=== PATIENT | female | born 1945 | race Caucasian/White ===

== ENCOUNTER 2016-03-21 18:12 | Emergency (ER) | payer MEDICARE, BC ==
[~2016-03-21] VITALS: Ht 152.4 cm; Wt 45.5 kg
[~2016-03-21 18:12] MED LIST: ALBUTEROL1.25 MG/3 IH; ALEVE 220MG220 MG PO; ARIMIDEX1 MG PO; ASPIRIN 81M81 MG/TA2 PO; CALCIUM 600600 M2 PO; CIPRO 250MG TA250 MG PO; FERRO-TIME325 MG PO; FISH OIL1000 MG PO; IPRATROPIUM BROM3 M1 IH; LEVAQUIN 750MG750 M1 PO; LUTEIN20 MG PO; MULTIPLE VITAMI1 CAP PO; PLAVIX 75MG TAB75 MG PO; PREDNISONE20 MG PO; SYNTHROID 0.0.025 MG PO; ZOCOR 40MG40 MG PO; ZOLOFT 50MG50 MG PO
[2016-03-21 18:15] VITALS: TEMP 98.4
[2016-03-21] MEDS ORDERED: NORCO 325 MG-51 TAB PO (18:38)
[2016-03-21 20:20] VITALS: BP 116/66; PULSE 78
== END 2016-03-21 20:32 | disposition home or self-care (01) ==
LOC: COL.ER 18:12
DX: K56.41 Fecal impaction (principal); Z98.890 Other specified postprocedural states

== ENCOUNTER 2018-01-30 10:12 | Emergency (ER) | payer MEDICARE, BC ==
[~2018-01-30] VITALS: Ht 152.4 cm; Wt 45.0 kg
[~2018-01-30 10:12] MED LIST changes: +NORCO 325 MG-51 TAB PO
[2018-01-30 10:23] VITALS: TEMP 97.3
[2018-01-30 10:53] LABS: BASO % 0.3 % (0.0-2.0); EOS # 0.6 (0.0-0.7); GRAN # 6.4 (1.4-6.5); GRAN % 69.2 % (42.2-75.2); HEMATOCRIT 48.3 % (37.0-47.0); HEMOGLOBIN 15.5 g/dl (12.5-16.0); LYMPH # 1.5 (1.2-3.4); LYMPH % 15.7 % (20.0-51.0); MEAN CELL VOLUME 87 fl (80.0-100.0); MEAN CORPUSCULAR HEMOGLOBIN 28 pg (27.0-31.0); MEAN CORPUSCULAR HGB CONC 32 g/dl (33.0-37.0); MEAN PLATELET VOLUME 10.6 fl (7.4-10.4); MONO # 0.8 (0.1-0.6); MONO % 8.5 % (1.7-9.3); PLATELET COUNT 216 K/mm3 (130-400); RED BLOOD COUNT 5.53 M/mm3 (4.10-5.30); REDCELL DISTRIBUTION WIDTH-CV 12.9 % (11.5-14.5)
[2018-01-30 11:05] LABS: ALANINE AMINOTRANSFERASE 23 U/L (9-52); ALBUMIN 3.7 gm/dL (3.5-5.0); ALKALINE PHOSPHATASE 66 U/L (50-136); ANION GAP 8 mmol/L (7-16); AST,SGOT 17 U/L (15-37); BILIRUBIN,TOTAL 0.4 mg/dL (0.0-1.0); BLOOD UREA NITROGEN 25 mg/dL (7-17); CALCIUM 9.3 mg/dL (8.4-10.2); CARBON DIOXIDE 23 mmol/L (22-30); CHLORIDE 107 mmol/L (98-107); CREATININE, serum 0.83 mg/dL (0.52-1.25); GLUCOSE 137 mg/dL (74-106); LIPASE 60 U/L (23-300); POTASSIUM 3.8 mmol/L (3.4-5.0); SODIUM 138 mmol/L (137-145); TOTAL PROTEIN 6.2 gm/dL (6.4-8.2)
[2018-01-30 11:23] LABS: TROPONIN-I < 0.012 ng/mL (0.000-0.034)
[2018-01-30 14:20] LABS: COLLECTION METHOD CLEAN CATCH
[2018-01-30 14:30] LABS: MUCOUS Present /lpf; PH 5 (5-8); URINE APPEARANCE Cloudy; URINE BACTERIA None Seen /hpf; URINE BILIRUBIN Negative (NEGATIVE); URINE BLOOD Negative (NEGATIVE); URINE CALCIUM OXALATE CRYSTAL Present /hpf; URINE COLOR Yellow; URINE GLUCOSE Negative (NEGATIVE); URINE KETONE Negative (NEGATIVE); URINE LEUKOCYTE ESTERASE 2+ (NEGATIVE); URINE NITRATE Negative (NEGATIVE); URINE PROTEIN(semi-quant) 1+ (NEGATIVE); URINE UROBILINOGEN Negative (NEGATIVE)
[2018-01-30] MEDS ORDERED: ZOFRAN ODT4 MG PO (15:36)
[2018-01-30 15:43] VITALS: BP 127/67; PULSE 86
[2018-01-31] MEDS ORDERED: MACROBID 1100 MG/CAP PO (15:54)
== END 2018-01-30 15:48 | disposition home or self-care (01) ==
LOC: COL.ER 10:12
PROVIDERS: Emergency Medicine
DX: R19.7 Diarrhea, unspecified (principal); R00.2 Palpitations; R53.81 Other malaise; Z79.02 Long term (current) use of antithrombotics/antiplatelets; Z79.82 Long term (current) use of aspirin
CPT/HCPCS: J7030; Q9967

== ENCOUNTER 2018-02-05 07:44 | Emergency (ER) | payer MEDICARE, BC ==
[~2018-02-05] VITALS: Ht 152.4 cm; Wt 44.1 kg
[~2018-02-05 07:44] MED LIST changes: +MACROBID 1100 MG/CAP PO; +ZOFRAN ODT4 MG PO
[2018-02-05 07:49] VITALS: TEMP 97.4
[2018-02-05 08:27] LABS: BASO # 0.1 (0.0-0.2); BASO % 0.4 % (0.0-2.0); EOS # 1.2 (0.0-0.7); EOS % 8.1 % (0-4.0); GRAN # 10.2 (1.4-6.5); GRAN % 67.6 % (42.2-75.2); HEMATOCRIT 46.8 % (37.0-47.0); HEMOGLOBIN 14.9 g/dl (12.5-16.0); LYMPH # 1.8 (1.2-3.4); LYMPH % 11.8 % (20.0-51.0); MEAN CELL VOLUME 88 fl (80.0-100.0); MEAN CORPUSCULAR HEMOGLOBIN 28 pg (27.0-31.0); MEAN CORPUSCULAR HGB CONC 32 g/dl (33.0-37.0); MEAN PLATELET VOLUME 10.3 fl (7.4-10.4); MONO # 1.6 (0.1-0.6); MONO % 10.7 % (1.7-9.3); PLATELET COUNT 260 K/mm3 (130-400); RED BLOOD COUNT 5.33 M/mm3 (4.10-5.30); REDCELL DISTRIBUTION WIDTH-CV 12.9 % (11.5-14.5)
[2018-02-05 08:36] LABS: COLLECTION METHOD CATHETER
[2018-02-05 08:42] LABS: ALANINE AMINOTRANSFERASE 33 U/L (9-52); ALBUMIN 3.6 gm/dL (3.5-5.0); ALKALINE PHOSPHATASE 97 U/L (50-136); ANION GAP 3 mmol/L (7-16); AST,SGOT 23 U/L (15-37); BILIRUBIN,TOTAL 0.2 mg/dL (0.0-1.0); BLOOD UREA NITROGEN 16 mg/dL (7-17); CALCIUM 9.2 mg/dL (8.4-10.2); CARBON DIOXIDE 29 mmol/L (22-30); CHLORIDE 108 mmol/L (98-107); CREATININE, serum 0.88 mg/dL (0.52-1.25); GLUCOSE 140 mg/dL (74-106); LIPASE 309 U/L (23-300); POTASSIUM 3.7 mmol/L (3.4-5.0); SODIUM 140 mmol/L (137-145); TOTAL PROTEIN 6.1 gm/dL (6.4-8.2)
[2018-02-05 08:51] LABS: TROPONIN-I < 0.012 ng/mL (0.000-0.034)
[2018-02-05 08:56] LABS: MUCOUS Present /lpf; PH 5 (5-8); SQUAMOUS EPITHELIAL 0-2 /hpf; URINE APPEARANCE Hazy; URINE BACTERIA None Seen /hpf; URINE BILIRUBIN Negative (NEGATIVE); URINE BLOOD Negative (NEGATIVE); URINE COLOR Yellow; URINE GLUCOSE Negative (NEGATIVE); URINE KETONE Negative (NEGATIVE); URINE LEUKOCYTE ESTERASE Negative (NEGATIVE); URINE NITRATE Negative (NEGATIVE); URINE PROTEIN(semi-quant) 2+ (NEGATIVE); URINE UROBILINOGEN Negative (NEGATIVE)
[2018-02-05] MEDS ORDERED: ZOFRAN ODT4 MG PO (10:42)
[2018-02-05 12:28] VITALS: BP 108/67; PULSE 86
== END 2018-02-05 12:28 | disposition home or self-care (01) ==
LOC: COL.ER 07:44
PROVIDERS: Emergency Medicine
DX: R19.7 Diarrhea, unspecified (principal); Z86.73 Personal history of transient ischemic attack (TIA), and cerebral infarction without residual deficits; Z85.3 Personal history of malignant neoplasm of breast; Z90.710 Acquired absence of both cervix and uterus; Z79.02 Long term (current) use of antithrombotics/antiplatelets
CPT/HCPCS: J7030; Q9967

== ENCOUNTER 2019-08-13 17:26 | Emergency (ER) | payer MEDICARE, BC ==
[~2019-08-13] VITALS: Ht 149.9 cm; Wt 46.8 kg
[2019-08-13 17:36] VITALS: TEMP 97.9
[2019-08-13 18:29] LABS: BASO # 0.1 (0.0-0.2); BASO % 1.1 % (0.0-2.0); EOS # 0.2 (0.0-0.7); EOS % 2.2 % (0-4.0); GRAN # 3.8 (1.4-6.5); GRAN % 53.3 % (42.2-75.2); HEMATOCRIT 38.5 % (37.0-47.0); HEMOGLOBIN 12.4 g/dl (12.5-16.0); LYMPH # 2.5 (1.2-3.4); LYMPH % 34.2 % (20.0-51.0); MEAN CELL VOLUME 87 fl (80.0-100.0); MEAN CORPUSCULAR HEMOGLOBIN 28 pg (27.0-31.0); MEAN CORPUSCULAR HGB CONC 32 g/dl (33.0-37.0); MEAN PLATELET VOLUME 10.4 fl (7.4-10.4); MONO # 0.6 (0.1-0.6); MONO % 8.9 % (1.7-9.3); PLATELET COUNT 171 K/mm3 (130-400); RED BLOOD COUNT 4.41 M/mm3 (4.10-5.30)
[2019-08-13 18:35] LABS: INR 0.9 (0.8-3.0); PROTHROMBIN TIME 10.4 SECONDS (9.7-12.8)
[2019-08-13 18:38] LABS: PARTIAL THROMBOPLASTIN TIME 28.6 SECONDS (26.0-37.0)
[2019-08-13 18:39] LABS: ALBUMIN 4.2 gm/dL (3.5-5.0); BILIRUBIN,TOTAL 0.3 mg/dL (0.0-1.0); CALCIUM 9.8 mg/dL (8.4-10.2); CREATININE, serum 0.76 (0.52-1.25); POTASSIUM 3.7 mmol/L (3.4-5.0); TOTAL PROTEIN 6.8 gm/dL (6.4-8.2)
[2019-08-13 19:10] VITALS: BP 100/65; PULSE 76
== END 2019-08-13 19:11 | disposition home or self-care (01) ==
LOC: COL.ER 17:26
PROVIDERS: Emergency Medicine
DX: M79.81 Nontraumatic hematoma of soft tissue (principal); Z86.73 Personal history of transient ischemic attack (TIA), and cerebral infarction without residual deficits

== ENCOUNTER 2020-01-30 23:00 | Emergency (ER) | payer MEDICARE, BC ==
[~2020-01-30] VITALS: Ht 152.4 cm; Wt 45.5 kg
[2020-01-30 23:30] LABS: BASO # 0.1 (0.0-0.2); BASO % 0.5 % (0.0-2.0); EOS # 0.1 (0.0-0.7); EOS % 0.5 % (0-4.0); GRAN # 12.7 (1.4-6.5); GRAN % 85.2 % (42.2-75.2); HEMATOCRIT 40.8 % (37.0-47.0); HEMOGLOBIN 13.1 g/dl (12.5-16.0); LYMPH # 1.5 (1.2-3.4); LYMPH % 9.9 % (20.0-51.0); MEAN CELL VOLUME 87 fl (80.0-100.0); MEAN CORPUSCULAR HEMOGLOBIN 28 pg (27.0-31.0); MEAN CORPUSCULAR HGB CONC 32 g/dl (33.0-37.0); MEAN PLATELET VOLUME 10.1 fl (7.4-10.4); MONO # 0.5 (0.1-0.6); MONO % 3.6 % (1.7-9.3); PLATELET COUNT 176 K/mm3 (130-400); RED BLOOD COUNT 4.69 M/mm3 (4.10-5.30); REDCELL DISTRIBUTION WIDTH-CV 12.5 % (11.5-14.5)
[2020-01-30 23:46] LABS: ALBUMIN 4.5 gm/dL (3.5-5.0); BILIRUBIN,TOTAL 0.5 mg/dL (0.0-1.0); CALCIUM 9.8 mg/dL (8.4-10.2); CREATININE, serum 0.84 (0.52-1.25); POTASSIUM 3.8 mmol/L (3.4-5.0); TOTAL PROTEIN 7.2 gm/dL (6.4-8.2)
[2020-01-31] MEDS ORDERED: BENTYL 20MG20 MG/TAB PO (01:45)
[2020-01-31] MEDS ORDERED: ZOFRAN ODT4 MG PO (01:45)
[2020-01-31 01:47] LABS: COLLECTION METHOD CATHETER
[2020-01-31 01:59] LABS: MUCOUS Present /lpf; PH 6 (5-8); URINE APPEARANCE Clear; URINE BACTERIA None Seen /hpf; URINE BILIRUBIN Negative (NEGATIVE); URINE BLOOD 1+ (NEGATIVE); URINE COLOR Yellow; URINE GLUCOSE Negative (NEGATIVE); URINE KETONE Trace (NEGATIVE); URINE LEUKOCYTE ESTERASE 2+ (NEGATIVE); URINE NITRATE Negative (NEGATIVE); URINE PROTEIN(semi-quant) Negative (NEGATIVE); URINE UROBILINOGEN Negative (NEGATIVE); URINE WBC 0-2 /hpf
[2020-01-31 02:05] VITALS: BP 124/71; PULSE 63; TEMP 98.4
== END 2020-01-31 02:09 | disposition home or self-care (01) ==
LOC: COL.ER 23:00
PROVIDERS: Emergency Medicine
DX: R10.30 Lower abdominal pain, unspecified (principal); I10 Essential (primary) hypertension; E03.9 Hypothyroidism, unspecified; C50.919 Malignant neoplasm of unspecified site of unspecified female breast; Z90.710 Acquired absence of both cervix and uterus; Z79.02 Long term (current) use of antithrombotics/antiplatelets; Z79.890 Hormone replacement therapy; Z79.82 Long term (current) use of aspirin
CPT/HCPCS: J0500; J1885; Q9967

== ENCOUNTER 2021-07-13 13:23 | Emergency (ER) | payer MEDICARE, BC ==
[~2021-07-13] VITALS: Ht 152.4 cm; Wt 46.8 kg
[~2021-07-13 13:23] MED LIST changes: +BENTYL 20MG20 MG/TAB PO
[2021-07-13 13:30] VITALS: TEMP 98
[2021-07-13 14:05] LABS: BASO # 0.1 K/mm3 (0.0-0.2); BASO % 0.7 % (0.0-2.0); EOS # 0.3 K/mm3 (0.0-0.7); EOS % 1.8 % (0.0-4.0); GRAN # 10.7 K/mm3 (1.4-6.5); GRAN % 74.4 % (42.2-75.2); HEMATOCRIT 40.4 % (37.0-47.0); LYMPH # 2.3 K/mm3 (1.2-3.4); MEAN CELL VOLUME 87 fl (80.0-100.0); MEAN CORPUSCULAR HEMOGLOBIN 28 pg (27-31); MEAN CORPUSCULAR HGB CONC 32 g/dl (33.0-37.0); MEAN PLATELET VOLUME 11.2 fl (7.4-10.4); MONO % 6.7 % (1.7-9.3); PLATELET COUNT 176 K/mm3 (130-400); RED BLOOD COUNT 4.66 M/mm3 (4.10-5.30); REDCELL DISTRIBUTION WIDTH-CV 12.1 % (11.5-14.5)
[2021-07-13 14:20] LABS: ALANINE AMINOTRANSFERASE 13 U/L (0-55); ALBUMIN 4.1 gm/dL (3.4-4.8); ALKALINE PHOSPHATASE 68 U/L (40-150); ANION GAP 10 mmol/L (7-16); AST,SGOT 14 U/L (5-34); BILIRUBIN,TOTAL 0.6 mg/dL (0.2-1.2); BLOOD UREA NITROGEN 12 mg/dL (10-20); CALCIUM 10.2 mg/dL (8.4-10.2); CARBON DIOXIDE 26 mmol/L (23-31); CHLORIDE 103 mmol/L (98-107); CREATININE, serum 0.89 mg/dL (0.57-1.11); GLUCOSE 83 mg/dL (70-99); LIPASE 36 U/L (8-78); POTASSIUM 3.8 mmol/L (3.5-4.5); SODIUM 139 mmol/L (136-145); TOTAL PROTEIN 7.2 gm/dL (6.2-8.1)
[2021-07-13 14:28] LABS: TROPONIN-I < 0.010 ng/mL (0.00-0.033)
[2021-07-13 15:30] VITALS: BP 116/61; PULSE 67
[2021-07-13] MEDS ORDERED: PROTONIX 40MG T40 MG PO (15:47)
== END 2021-07-13 15:48 | disposition home or self-care (01) ==
LOC: COL.ER 13:23
PROVIDERS: Nurse Practitioner Primary Care
DX: R07.89 Other chest pain (principal); D72.829 Elevated white blood cell count, unspecified

== ENCOUNTER 2022-08-13 14:17 | Emergency (ER) | payer MEDICARE, BC ==
[~2022-08-13] VITALS: Ht 149.9 cm; Wt 45.5 kg
[~2022-08-13 14:17] MED LIST changes: +AMOXICILLIN 8751 TAB PO; +PROTONIX 40MG T40 MG PO
[2022-08-13 14:25] VITALS: TEMP 98.7
[2022-08-13] MEDS ORDERED: LR 1,000 ML IV ONE (15:15)
[2022-08-13 15:40] LABS: BASO # 0.1 K/mm3 (0.0-0.2); BASO % 0.8 % (0.0-2.0); EOS % 0.3 % (0.0-4.0); GRAN # 7.2 K/mm3 (1.4-6.5); GRAN % 78.3 % (42.2-75.2); HEMATOCRIT 39.5 % (37.0-47.0); HEMOGLOBIN 12.6 g/dl (12.5-16.0); LYMPH # 0.8 K/mm3 (1.2-3.4); MEAN CELL VOLUME 86 fl (80.0-100.0); MEAN CORPUSCULAR HEMOGLOBIN 28 pg (27-31); MEAN CORPUSCULAR HGB CONC 32 g/dl (33.0-37.0); MEAN PLATELET VOLUME 11.3 fl (7.4-10.4); MONO # 1.1 K/mm3 (0.1-0.6); MONO % 11.4 % (1.7-9.3); PLATELET COUNT 211 K/mm3 (130-400); RED BLOOD COUNT 4.59 M/mm3 (4.10-5.30)
[2022-08-13 15:55] LABS: ALBUMIN 3.3 gm/dL (3.4-4.8); BILIRUBIN,TOTAL 0.7 mg/dL (0.2-1.2); CALCIUM 9.3 mg/dL (8.4-10.2); CREATININE, serum 0.8 mg/dL (0.57-1.11); MAGNESIUM 1.8 mg/dL (1.6-2.6); PHOSPHOROUS 3.2 mg/dL (2.3-4.7); POTASSIUM 3.4 mmol/L (3.5-4.5); TOTAL PROTEIN 6.4 gm/dL (6.2-8.1)
[2022-08-13 15:58] LABS: COLLECTION METHOD CLEAN CATCH
[2022-08-13 16:01] LABS: TROPONIN-I 0.01 ng/mL (0.00-0.033)
[2022-08-13 16:11] LABS: PH 5.5 (5.0-8.5); URINE APPEARANCE Clear (CLEAR/HAZY); URINE BLOOD 2+ (NEGATIVE); URINE COLOR Yellow (YELLOW); URINE GLUCOSE Negative (NEGATIVE); URINE KETONE TRACE (NEGATIVE); URINE NITRATE Negative (NEGATIVE); URINE PROTEIN(semi-quant) 1+ (NEGATIVE); URINE UROBILINOGEN 0.2 E.U/dL (0.2-1.0)
[2022-08-13 16:12] LABS: MUCOUS Present (NOT PRESENT); URINE BACTERIA Rare /hpf (NONE SEEN)
[2022-08-13] MEDS ORDERED: Iohexol 300 - 100 ML VIAL IV ONE (16:18)
[2022-08-13] MEDS ORDERED: NS 60 ML IV ONE (16:19)
[2022-08-13] MEDS ORDERED: FLAGYL500 MG PO (19:05)
[2022-08-13] MEDS ORDERED: CIPRO 500MG TA500 MG PO (19:05)
[2022-08-13 19:09] LABS: CLOSTRIDIUM DIFF A/B POS
[2022-08-13 19:28] VITALS: BP 116/66; PULSE 94
[2022-08-13] MEDS ORDERED: VANCOCIN H125 MG/CAP PO (21:42)
== END 2022-08-13 19:29 | disposition home or self-care (01) ==
LOC: COL.ER 14:17
PROVIDERS: Emergency Medicine
DX: A04.72 Enterocolitis due to Clostridium difficile, not specified as recurrent (principal); K51.00 Ulcerative (chronic) pancolitis without complications; Z98.890 Other specified postprocedural states
CPT/HCPCS: J7120; Q9967

== ENCOUNTER 2023-10-25 16:25 | Inpatient (IN) | payer MEDICARE, BC ==
[~2023-10-25] VITALS: Ht 152.4 cm; Wt 47.6 kg
[~2023-10-25 16:25] MED LIST changes: +CIPRO 500MG TA500 MG PO; +FLAGYL500 MG PO; +VANCOCIN H125 MG/CAP PO; +ZOLOFT 100MG100 MG PO; -ZOLOFT 50MG50 MG PO
[2023-10-25] MEDS ORDERED: fentaNYL 50 MCG/ML 2 ML VIAL IV ONE ×2 (17:15→19:15)
[2023-10-25] MEDS ORDERED: NS 500 ML IV ONE (17:15)
[2023-10-25 17:16] LABS: BASO % 0.3 % (0.0-2.0); EOS # 0.1 K/mm3 (0.0-0.7); EOS % 0.9 % (0.0-4.0); GRAN # 11.2 K/mm3 (1.4-6.5); GRAN % 76.4 % (42.2-75.2); HEMATOCRIT 40.9 % (37.0-47.0); HEMOGLOBIN 13.3 g/dl (12.5-16.0); LYMPH # 2.2 K/mm3 (1.2-3.4); LYMPH % 15.1 % (20.0-51.0); MEAN CELL VOLUME 87 fl (80.0-100.0); MEAN CORPUSCULAR HEMOGLOBIN 28 pg (27-31); MEAN CORPUSCULAR HGB CONC 33 g/dl (33.0-37.0); MEAN PLATELET VOLUME 10.8 fl (7.4-10.4); MONO % 6.9 % (1.7-9.3); PLATELET COUNT 172 K/mm3 (130-400); RED BLOOD COUNT 4.71 M/mm3 (4.10-5.30); REDCELL DISTRIBUTION WIDTH-CV 12.8 % (11.5-14.5)
[2023-10-25 17:33] LABS: ALBUMIN 4.1 g/dL (3.4-4.8); BILIRUBIN,TOTAL 0.8 mg/dL (0.2-1.2); C-REACTIVE PROTEIN 8.26 mg/dL (0.00-0.50); CALCIUM 10.9 mg/dL (8.4-10.2); CREATININE, serum 1.05 mg/dL (0.57-1.11); MAGNESIUM 2.1 mg/dL (1.6-2.6); POTASSIUM 3.8 mEq/L (3.5-4.5); TOTAL PROTEIN 7.1 g/dl (6.2-8.1)
[2023-10-25 18:29] LABS: COLLECTION METHOD CLEAN CATCH
[2023-10-25] MEDS ORDERED: Iohexol 300 - 100 ML VIAL IV ONE (18:33)
[2023-10-25] MEDS ORDERED: NS 100 ML IV ONE (18:33)
[2023-10-25 18:52] LABS: PH 7.5 (5.0-8.5); URINE APPEARANCE TURBID (CLEAR/HAZY); URINE BLOOD NEGATIVE (NEGATIVE); URINE COLOR YELLOW (YELLOW); URINE GLUCOSE NEGATIVE (NEGATIVE); URINE KETONE NEGATIVE (NEGATIVE); URINE NITRATE NEGATIVE (NEGATIVE); URINE PROTEIN(semi-quant) TRACE (NEGATIVE); URINE UROBILINOGEN 0.2 E.U/dL (0.2-1.0)
[2023-10-25] MEDS ORDERED: ZOCOR 40MG40 MG PO (19:28)
[2023-10-25] MEDS ORDERED: metroNIDAZOLE 100 ML IV ONE (19:45)
[2023-10-25] MEDS ORDERED: Ondansetron 4 MG/2 ML VIAL ONE (20:04)
[2023-10-25] MEDS ORDERED: Lidocaine PF 2% (20 MG/ML) 5 ML VIAL ONE (20:04)
[2023-10-25] MEDS ORDERED: NS 10 ML IV ONE (20:04)
[2023-10-25] MEDS ORDERED: Rocuronium 50 MG/5 ML Multi-Dose VIAL ONE (20:04)
[2023-10-25] MEDS ORDERED: dexAMETHasone 10 MG/ML VIAL ONE (20:04)
[2023-10-25] MEDS ORDERED: fentaNYL 50 MCG/ML 2 ML VIAL ONE ×2 (20:04→21:22)
[2023-10-25] MEDS ORDERED: Succinylcholine PF 200 MG/10 ML SYRINGE IV ONE (20:05)
[2023-10-25] MEDS ORDERED: Pantoprazole 40 MG in NS 10 ML IV SCH (21:00)
[2023-10-25] MEDS ORDERED: Morphine 4 MG/ML VIAL IV PRN (21:15)
[2023-10-25] MEDS ORDERED: droPERidol 2.5 MG/ML 2 ML VIAL IV PRN (21:30)
[2023-10-25] MEDS ORDERED: HYDROmorphone 1 MG/1 ML SYRINGE [PACU/SDC ONLY] IV PRN (21:30)
[2023-10-25] MEDS ORDERED: fentaNYL 50 MCG/ML 1 ML SYRINGE/VIAL [PACU/SDC ONLY] IV PRN (21:30)
[2023-10-25] MEDS ORDERED: hydrALAZINE 20 MG/ML 1 ML VIAL IV PRN (21:30)
[2023-10-25] MEDS ORDERED: Morphine 2 MG/1 ML VIAL [PACU/SDC ONLY] IV PRN (21:30)
[2023-10-25] MEDS ORDERED: Ondansetron 4 MG/2 ML VIAL IV PRN ×2 (21:30→22:30)
[2023-10-25] MEDS ORDERED: LR 1,000 ML IV SCH (22:30)
[2023-10-26] VITALS (288 sets, daily range): BP systolic 92–139; BP diastolic 50–72; PULSE 65–90; TEMP 98.2–99.4; O2SAT 88–100
[2023-10-26 04:55] LABS: MEAN CELL VOLUME 86 fl (80.0-100.0); MEAN CORPUSCULAR HGB CONC 33 g/dl (33.0-37.0); MEAN PLATELET VOLUME 11.3 fl (7.4-10.4); PLATELET COUNT 129 K/mm3 (130-400); RED BLOOD COUNT 3.56 M/mm3 (4.10-5.30); REDCELL DISTRIBUTION WIDTH-CV 12.7 % (11.5-14.5)
[2023-10-26 04:57] LABS: HEMATOCRIT 30.6 % (37.0-47.0); HEMOGLOBIN 10.1 g/dl (12.5-16.0); MEAN CORPUSCULAR HEMOGLOBIN 28 pg (27-31)
[2023-10-26 05:13] LABS: ALBUMIN 2.9 g/dL (3.4-4.8); CALCIUM 9.1 mg/dL (8.4-10.2); CREATININE, serum 1.13 mg/dL (0.57-1.11); POTASSIUM 4.2 mEq/L (3.5-4.5); TOTAL PROTEIN 5.4 g/dl (6.2-8.1)
[2023-10-26] MEDS ORDERED: metroNIDAZOLE 100 ML IV SCH (06:00)
--- NOTE | 2023-10-26 08:31 | NUR ---
Patient resting in bed, alert and oriented. Minimal pain in abdomen. Incision had drainage on abdominal pad, sanginous, removed soiled and redressed with abdominal pad. Some tenderness and pain noted on bilateral sides of incision. Currently on room air with stable vital signs. IV infusing appropriately and rodriguez draining yellow clear urine. Light bowel sounds, patient states she has not passed gas yet. No NG in nare.
--- NOTE | 2023-10-26 09:04 | NUR ---
personal support worker met with pt to discuss discharge planning. She reports to live with her , Loi [phone] in [place]. She sees Dr. Frederick for PCP needs and obtains medications from [facility] with no difficulties. She confirmed her insurance as Medicare A and B and [employer]BS. She reports to be independent with ADLS and uses no DME. She thinks her as DPOA-HC at home. Pt had no further needs. KRIS called KRIS Erazo with [facility] who does not have a DPOA-HC on file for pt. Discharge Plan: home likely
[2023-10-26] MEDS ORDERED: oxyCODONE 5 MG TAB PO PRN (09:45)
[2023-10-26] MEDS ORDERED: Sertraline 100 MG TAB PO SCH (10:44)
--- NOTE | 2023-10-26 18:20 | NUR ---
Patient up to surgical unit from ICU. Patient awake, alert and oriented. Recently received pain medication, pt states that she is unsure if medication is working yet. at the bedside. Bed in lowest position with call light within reach.
--- NOTE | 2023-10-26 18:49 | NUR ---
Gave report to Rossy BUTT on surgical. All personal belongings were transported with bedside. VSS at this time. Dime sized drainage on new dressing. She tolerated up and moving to and from wheelchair without complications.
[2023-10-26] MEDS ORDERED: Acetaminophen 325 MG TAB PO PRN (19:00)
--- NOTE | 2023-10-26 20:00 | NUR ---
PT A&O X3 LAYING IN BED. VSS. ABD MIDLINE DRESSING INTACT WITH SOME SHADOWING ON IT. PT REPORTING HAVING SOME ABD PAIN, GAVE PRN TYLENOL PER MAR. DENYING N/V. VICENTE TO DD WITH YELLOW OUTPUT. LR AT 100MLS/HR INFUSING TO RT AC. PT DENYING FURTHER NEEDS. CALL LIGHT IN REACH
[2023-10-26] MEDS ORDERED: Atorvastatin 20 MG TAB PO SCH (21:00)
--- NOTE | 2023-10-26 22:32 | NUR ---
PT HAVING SOME INCREASED CONFUSION THROUGHOUT THE NIGHT. PT REORIENTED TO SITUATION & FALL PRECAUTIONS IN PLACE
[2023-10-27] VITALS (13 sets, daily range): BP systolic 119–156; BP diastolic 58–74; PULSE 73–91; TEMP 98.3–99.1
--- NOTE | 2023-10-27 06:12 | NUR ---
PT IS ABLE TO ANSWER ORIENTATION QUESTIONS CORRECTLY BUT STILL CONFUSED & FORGETFUL IN CONVERSATION. STATES SHE IS HAVING SOME ABD PAIN, GAVE PRN TYLENOL PER MAR. MIDLINE DRESSING HAS REMAINED THE SAME, INTACT WITH MINIMAL SHADOWING. CALL LIGHT IN REACH & FALL PRECAUTIONS IN PLACE.
--- NOTE | 2023-10-27 09:00 | NUR ---
PATIENT RESTING IN BED EATING BREAKFAST. ALERT AND ORIENTED. SHIFT ASSESSMENT COMPLETE. INCISION TO MIDLINE ABDOMEN HAS A SMALL AMOUNT OF BLOOD NOTED. ALL CECILLE INTACT. STATES THERE IS A SMALL AMOUNT OF ABDOMINAL DISCOMFORT, BUT STATES SHE IS PASSING GAS. PATIENT ON 2L O2 VIA NC AT THIS TIME. DENIES FURTHER NEEDS OR CONCERNS AT THIS TIME. ALL NEEDS MET AT THIS VISIT. CALL LIGHT WITHIN REACH.
--- NOTE | 2023-10-27 12:23 | NUR ---
THIS RN DISCONTINUED VICENTE PER ORDERS. PATIENT IS NOW ABLE TO AMBULATE TO BATHROOM. PATIENT TOLERATED PROCEDURE WELL. MINNIE CARE PROVIDED. DENIES PAIN OR DISCOMFORT. 700 ML CLEAR, YELLOW URINE NOTED IN VICENTE BAG.
--- NOTE | 2023-10-27 15:58 | NUR ---
wharf worker reviewed the PT evaluation which stated patient may benefit from home health if she was interested. SW met with patient and her family member and provided the [email or web address] list of options for home health. Patient stated she was not certain that she would want home health. SW explained she would follow up tomorrow in case she was interested. SW explained if patient discharged and did not want home health and got home and decided she should get home health, she could set this up at her primary care physician. Patient understood. Discharge plan: Home
--- NOTE | 2023-10-27 20:35 | NUR ---
Patient assessed at this time, see shift assessment, reports minimal pain, denies the need for pain medicine at this time, dressing to abdomen about to come off, changed with non adherent pad and metapore, sutures intact, no drainage noted, still with IV infusing well to right AC, denies further needs, call light and personal items within reach, will continue to monitor.
[2023-10-28] VITALS (13 sets, daily range): BP systolic 116–163; BP diastolic 63–77; PULSE 72–97; TEMP 98.2–99.5
--- NOTE | 2023-10-28 00:30 | NUR ---
Patient confused at this time, thought it's noon, reorientated by this nurse, denies further needs, will continue to monitor.
[2023-10-28 05:49] LABS: BASO % 0.4 % (0.0-2.0); EOS # 0.2 K/mm3 (0.0-0.7); EOS % 1.9 % (0.0-4.0); GRAN # 7.7 K/mm3 (1.4-6.5); GRAN % 72.4 % (42.2-75.2); LYMPH # 1.9 K/mm3 (1.2-3.4); MEAN CELL VOLUME 87 fl (80.0-100.0); MEAN CORPUSCULAR HGB CONC 32 g/dl (33.0-37.0); MEAN PLATELET VOLUME 11.4 fl (7.4-10.4); MONO # 0.7 K/mm3 (0.1-0.6); MONO % 6.7 % (1.7-9.3); PLATELET COUNT 118 K/mm3 (130-400); RED BLOOD COUNT 2.84 M/mm3 (4.10-5.30); REDCELL DISTRIBUTION WIDTH-CV 12.8 % (11.5-14.5)
[2023-10-28 05:54] LABS: HEMATOCRIT 24.7 % (37.0-47.0); MEAN CORPUSCULAR HEMOGLOBIN 28 pg (27-31)
[2023-10-28 06:10] LABS: CALCIUM 8.8 mg/dL (8.4-10.2); CREATININE, serum 0.87 mg/dL (0.57-1.11); POTASSIUM 3.7 mEq/L (3.5-4.5)
--- NOTE | 2023-10-28 07:23 | NUR ---
Patient resting in bed, eyes closed, on room air, respirations even and unlabored, report given to DAQUAN Julian.
--- NOTE | 2023-10-28 08:00 | NUR ---
SHIFT ASSESSMENT COMPLETE. VSS. PATIENT RESTING IN BED REQUESTING TO GO TO RESTROOM. PATIENT AMBULATED TO RESTROOM SBA. ALL MORNING MEDS GIVEN ORDERED. PATIENT HAS SOME CONFUSION BUT A&O X3. PATIENT HAS NO REQUEST AT THSI TIME. BED ALARM ON AND CALL LIGHT IN REACH
--- NOTE | 2023-10-28 12:15 | NUR ---
terrazzo worker attended interdisciplinary clinical rounding with Dr. Tena. Patient is not medically ready for discharge. Discharge plan: Home
--- NOTE | 2023-10-28 15:23 | NUR ---
Workers Compensation Consultant met with patient to present and review IM form. Patient verbalized understanding and provided signature. SW placed form in chart and provided copy to patient. SW discussed Home Health services with patient and her who is at bedside. Patient declined a need for HH at this time.
[2023-10-28 16:32] LABS: HEMATOCRIT 24.6 % (37.0-47.0)
[2023-10-29] VITALS (7 sets, daily range): BP systolic 138–149; BP diastolic 72–77; PULSE 66–76; TEMP 98.1–98.9
[2023-10-29 06:28] LABS: BASO % 0.4 % (0.0-2.0); EOS # 0.3 K/mm3 (0.0-0.7); EOS % 3.1 % (0.0-4.0); GRAN # 5.8 K/mm3 (1.4-6.5); GRAN % 63.7 % (42.2-75.2); LYMPH # 2.2 K/mm3 (1.2-3.4); LYMPH % 24.4 % (20.0-51.0); MEAN CELL VOLUME 86 fl (80.0-100.0); MEAN CORPUSCULAR HGB CONC 33 g/dl (33.0-37.0); MONO # 0.7 K/mm3 (0.1-0.6); MONO % 7.3 % (1.7-9.3); PLATELET COUNT 159 K/mm3 (130-400); RED BLOOD COUNT 2.79 M/mm3 (4.10-5.30); REDCELL DISTRIBUTION WIDTH-CV 12.7 % (11.5-14.5)
[2023-10-29 06:30] LABS: HEMATOCRIT 24.1 % (37.0-47.0); HEMOGLOBIN 7.9 g/dl (12.5-16.0); MEAN CORPUSCULAR HEMOGLOBIN 28 pg (27-31)
[2023-10-29 06:49] LABS: CALCIUM 8.5 mg/dL (8.4-10.2); CREATININE, serum 0.84 mg/dL (0.57-1.11); POTASSIUM 3.4 mEq/L (3.5-4.5)
--- NOTE | 2023-10-29 10:00 | NUR ---
SHIFT ASSESMENT COMPLETE. VSS. PATIENT RESTING IN BED. ALL MORNING MEDS GIVEN ORDERED. PATIENT REPORTS NO PAIN THIS AM. PATIENT HAS HAD A FEW EPISODES OF LOOS STOOL THIS AM. PATIENT HAS RECEIVED ORDERS TO DISCHARGE TODAY. DISCHARGE PAPERS BEING WORKED ON AND PATIENT TO DISCHARGE SOON. PATIENT HAS NO NEEDS AT TIS TIME. CALL LIGHT IN REACH
[2023-10-29] MEDS ORDERED: AMOXICILLIN 8751 TAB PO (10:52)
--- NOTE | 2023-10-29 13:12 | NUR ---
INT discontinued. discharge instructions given to pt and , all questions answered.
== END 2023-10-29 14:31 | disposition home or self-care (01) | DRG 854 ==
LOC: COL.ER 16:25 → SURG 19:37 → ICU 19:38 → SURG 10-26 18:21
PROVIDERS: Emergency Medicine; Internal Medicine; Physician Assistant; ADMIT Surgery
PROC: 0DB80ZZ Excision of Small Intestine, Open Approach (ICD-10-PCS; principal; 2023-10-25 21:00)
DX: A41.9 Sepsis, unspecified organism (principal); D62 Acute posthemorrhagic anemia; K57.00 Diverticulitis of small intestine with perforation and abscess without bleeding; N39.0 Urinary tract infection, site not specified; J43.9 Emphysema, unspecified; F32.A Depression, unspecified; E78.5 Hyperlipidemia, unspecified; E03.9 Hypothyroidism, unspecified; Z88.6 Allergy status to analgesic agent; Z79.890 Hormone replacement therapy; Z90.710 Acquired absence of both cervix and uterus; Z87.01 Personal history of pneumonia (recurrent); Z79.899 Other long term (current) drug therapy; Z86.73 Personal history of transient ischemic attack (TIA), and cerebral infarction without residual deficits; Z79.02 Long term (current) use of antithrombotics/antiplatelets
CPT/HCPCS: A4314; A9284; J0690; J1100; J2270; J2405; J2470; J2543; J2704; J3010; J7040; J7120; Q9967

== ENCOUNTER 2023-11-07 14:09 | Inpatient (IN) | payer MEDICARE, BC ==
[~2023-11-07] VITALS: Ht 152.4 cm; Wt 49.2 kg
[2023-11-07] MEDS ORDERED: fentaNYL 50 MCG/ML 2 ML VIAL IV ONE (16:30)
[2023-11-07] MEDS ORDERED: Ondansetron 4 MG/2 ML VIAL IV ONE (16:30)
[2023-11-07] MEDS ORDERED: NS 1,000 ML IV ONE (16:30)
[2023-11-07 16:52] LABS: BASO # 0.1 K/mm3 (0.0-0.2); BASO % 0.4 % (0.0-2.0); EOS % 0.1 % (0.0-4.0); GRAN # 19.9 K/mm3 (1.4-6.5); HEMOGLOBIN 11.5 g/dl (12.5-16.0); LYMPH # 0.9 K/mm3 (1.2-3.4); LYMPH % 3.9 % (20.0-51.0); MEAN CELL VOLUME 90 fl (80.0-100.0); MEAN CORPUSCULAR HEMOGLOBIN 28 pg (27-31); MEAN CORPUSCULAR HGB CONC 31 g/dl (33.0-37.0); MEAN PLATELET VOLUME 9.8 fl (7.4-10.4); MONO # 1.1 K/mm3 (0.1-0.6); MONO % 5.1 % (1.7-9.3); PLATELET COUNT 376 K/mm3 (130-400); RED BLOOD COUNT 4.11 M/mm3 (4.10-5.30); REDCELL DISTRIBUTION WIDTH-CV 13.2 % (11.5-14.5)
[2023-11-07 16:57] LABS: HEMATOCRIT 36.9 % (37.0-47.0)
[2023-11-07 17:11] LABS: ALBUMIN 3.6 g/dL (3.4-4.8); BILIRUBIN,TOTAL 0.5 mg/dL (0.2-1.2); CALCIUM 10.1 mg/dL (8.4-10.2); POTASSIUM 3.9 mEq/L (3.5-4.5); TOTAL PROTEIN 7.3 g/dl (6.2-8.1)
[2023-11-07] MEDS ORDERED: Iohexol 300 - 100 ML VIAL IV ONE (17:52)
[2023-11-07] MEDS ORDERED: NS 100 ML IV ONE (17:56)
[2023-11-07 18:41] LABS: COLLECTION METHOD CLEAN CATCH
[2023-11-07 18:49] LABS: PH 5.5 (5.0-8.5); URINE APPEARANCE CLEAR (CLEAR/HAZY); URINE BLOOD TRACE (NEGATIVE); URINE COLOR YELLOW (YELLOW); URINE GLUCOSE NEGATIVE (NEGATIVE); URINE KETONE NEGATIVE (NEGATIVE); URINE NITRATE NEGATIVE (NEGATIVE); URINE PROTEIN(semi-quant) TRACE (NEGATIVE); URINE UROBILINOGEN 0.2 E.U/dL (0.2-1.0)
[2023-11-07] MEDS ORDERED: Vancomycin 125 MG CAP PO ONE (19:00)
[2023-11-07 19:32] LABS: CLOSTRIDIUM DIFF A/B NEG
[2023-11-07 19:33] LABS: URINE WBC 0-2 /hpf (0-2)
[2023-11-07 19:34] LABS: MUCOUS PRESENT (NOT PRESENT); URINE BACTERIA RARE /hpf (NONE SEEN)
[2023-11-07] MEDS ORDERED: Acetaminophen 325 MG TAB PO PRN (20:45)
[2023-11-07] MEDS ORDERED: NS 1,000 ML IV SCH (20:45)
[2023-11-07] MEDS ORDERED: Ondansetron 4 MG/2 ML VIAL IV PRN (20:45)
[2023-11-07 21:00] VITALS: BP_SYST 100
[2023-11-07] MEDS ORDERED: Atorvastatin 20 MG TAB PO SCH (21:00)
[2023-11-07] MEDS ORDERED: Simvastatin 40 MG **** subs to Atorvastatin 20 MG PO SCH (21:00)
[2023-11-07 21:11] VITALS: BP 176/74; PULSE 104; TEMP 99.7
--- NOTE | 2023-11-07 21:25 | NUR ---
PT ONTO FLOOR AT THIS TIME VIA WHEELCHAIR. OSIEL () AT BEDSIDE. ADMISSION ASSESSMENT AND INTAKE COMPLETE AND DOCUMENTED.
[2023-11-08] VITALS (13 sets, daily range): BP systolic 100–138; BP diastolic 55–72; PULSE 72–125; TEMP 97.4–100.1
[2023-11-08] MEDS ORDERED: Vancomycin 125 MG/5 ML Oral Soln 300 ML BOTTLE PO SCH (01:30)
--- NOTE | 2023-11-08 04:15 | NUR ---
PT CALLED OUT TO INFORM THIS NURSE THAT SHE NEEDED TO GO TO THE BATHROOM SHE IS HAVING DIARRHEA. PT INCONTINENT OF STOOL IN BED. PT COULD NOT RECALL IF THIS WAS ONE SINGULAR EPISODE OR HAD BEEN HAPPENING SINCE SHE FELL ASLEEP AROUND 2300. PT REORIENTED TO CALL LIGHT AND EDUCATED TO CALL IF BATHROOM ASSISTANCE IS NEEDED. DENIES PAIN. BED ALARM ON AND CALL LIGHT WITHIN REACH.
--- NOTE | 2023-11-08 06:31 | NUR ---
PT DENIES ANY OTHER INCONTINENT EPISODES. REQUESTS HELP PUTTING HEARING AIDS IN. DENIES PAIN. NO FURTHER CONCERNS.
[2023-11-08 07:05] LABS: BASO # 0.1 K/mm3 (0.0-0.2); BASO % 0.6 % (0.0-2.0); EOS % 0.1 % (0.0-4.0); GRAN % 81.2 % (42.2-75.2); LYMPH # 0.9 K/mm3 (1.2-3.4); LYMPH % 10.9 % (20.0-51.0); MEAN CELL VOLUME 89 fl (80.0-100.0); MEAN CORPUSCULAR HGB CONC 31 g/dl (33.0-37.0); MEAN PLATELET VOLUME 10.1 fl (7.4-10.4); MONO # 0.6 K/mm3 (0.1-0.6); MONO % 6.9 % (1.7-9.3); PLATELET COUNT 285 K/mm3 (130-400); REDCELL DISTRIBUTION WIDTH-CV 13.4 % (11.5-14.5)
[2023-11-08 07:08] LABS: HEMATOCRIT 29.4 % (37.0-47.0); HEMOGLOBIN 9.2 g/dl (12.5-16.0); MEAN CORPUSCULAR HEMOGLOBIN 28 pg (27-31)
[2023-11-08 07:38] LABS: ALBUMIN 2.7 g/dL (3.4-4.8); BILIRUBIN,TOTAL 0.6 mg/dL (0.2-1.2); CALCIUM 8.9 mg/dL (8.4-10.2); CREATININE, serum 0.94 mg/dL (0.57-1.11); POTASSIUM 3.6 mEq/L (3.5-4.5); TOTAL PROTEIN 5.7 g/dl (6.2-8.1)
[2023-11-08] MEDS ORDERED: Omega-3 Fatty Acid Esters (OTC) 1,000 MG CAP PO SCH (09:00)
[2023-11-08] MEDS ORDERED: Sertraline 100 MG TAB PO SCH (09:00)
[2023-11-08] MEDS ORDERED: Pantoprazole 40 MG in NS 10 ML IV SCH (09:00)
--- NOTE | 2023-11-08 09:00 | NUR ---
PATIENT ALERT AND ORIENTED X4. ON ROOM AIR, DENIES PAIN AT THIS TIME JUST REPORTS SOME DISCOMFORT TO RIGHT LOWER QUADRANT. PATIENT AT BEDSIDE. PATIENT ON CLEAR LIQUID DIET. DENIES ANY OTHER NEEDS AT THIS TIME.
--- NOTE | 2023-11-08 09:04 | NUR ---
SW met with patient and /DPOA Loi ([phone]) to complete initial assessment for discharge planning. Patient verified that she lives with in [place], sees Dr. Lucinda Frederick as her PCP and uses [facility]. Patient denies using any DME and reports to be active and independent. Patient is a return admission and was just discharged from this hospital two weeks ago. Patient denied HH services at last discharge and states she is unsure of what HH can do for her at home. Patient and state that she has a DPOA and living will completed and were asked to provide a copy for patient's chart as there is nothing on hospital or PCP chart. SW informed patient that PT/OT will be ordered to assess patient's physical ability and SW will follow up for discharge needs. Patient and voiced understanding. Discharge plan: Home with possible HH
--- NOTE | 2023-11-08 20:30 | NUR ---
Initial shift assessment done- Alert/oriented x4 at this time, pleasant, at bedside watching TV with her/he will be leaving for the night soon,, VSS, denies pain, IV fluids of NS at 100cc/hr. Put on fall risk , states she feels weak, bed alarm on. No diarrhea at this time- up to bathroom, voiding.
[2023-11-09] VITALS (13 sets, daily range): BP systolic 94–155; BP diastolic 65–75; PULSE 67–93; TEMP 97–98.5
--- NOTE | 2023-11-09 06:00 | NUR ---
Did sleep good last night-- is somewhat confused when wakes up during the night-did reorient ,, VSS, fall Risk in place, bed alarm on. Continues with IV fluids at 100cc/hr, Up to bathroom x3 to void during the night-- no stools during this shift.
[2023-11-09 06:22] LABS: BASO % 0.7 % (0.0-2.0); EOS # 0.2 K/mm3 (0.0-0.7); EOS % 3.8 % (0.0-4.0); GRAN # 3.3 K/mm3 (1.4-6.5); LYMPH # 1.4 K/mm3 (1.2-3.4); LYMPH % 25.8 % (20.0-51.0); MEAN CELL VOLUME 89 fl (80.0-100.0); MEAN CORPUSCULAR HGB CONC 31 g/dl (33.0-37.0); MEAN PLATELET VOLUME 10.3 fl (7.4-10.4); MONO # 0.5 K/mm3 (0.1-0.6); MONO % 9.2 % (1.7-9.3); PLATELET COUNT 239 K/mm3 (130-400); RED BLOOD COUNT 2.95 M/mm3 (4.10-5.30); REDCELL DISTRIBUTION WIDTH-CV 13.2 % (11.5-14.5)
[2023-11-09 06:25] LABS: HEMATOCRIT 26.1 % (37.0-47.0); HEMOGLOBIN 8.2 g/dl (12.5-16.0); MEAN CORPUSCULAR HEMOGLOBIN 28 pg (27-31)
[2023-11-09 06:41] LABS: ALANINE AMINOTRANSFERASE 16 U/L (0-55); ALBUMIN 2.4 g/dL (3.4-4.8); ALKALINE PHOSPHATASE 61 U/L (40-150); ANION GAP 7 mmol/L (7-16); AST,SGOT 13 U/L (5-34); BILIRUBIN,TOTAL 0.3 mg/dL (0.2-1.2); CALCIUM 8.4 mg/dL (8.4-10.2); CHLORIDE 114 mEq/L (98-107); CREATININE, serum 0.74 mg/dL (0.57-1.11); GLUCOSE 86 mg/dL (70-99); POTASSIUM 3.3 mEq/L (3.5-4.5); SODIUM 142 mEq/L (136-145); TOTAL PROTEIN 5.1 g/dl (6.2-8.1)
[2023-11-09 07:03] LABS: BLOOD UREA NITROGEN < 5 mg/dL (10-20)
--- NOTE | 2023-11-09 08:20 | NUR ---
PATIENT ALERT AND ORIENTED X4. PATIENT DENIES PAIN AT THIS TIME. ON ROOM AIR. TELE PLACED. PATIENT REPORTS HAVING LOSE BOWEL MOVEMENTS X2 THIS MORNING. PATIENT FLUIDS INFUSING PER EMAR. CALL LIGHT WITHIN REACH. FALL PRECAUTIONS INPLACE. CONTACT ISOLATION INPLACE.
[2023-11-09] MEDS ORDERED: Vancomycin 125 MG/5 ML Oral Soln 300 ML BOTTLE PO SCH ×2 (09:15→15:00)
[2023-11-09] MEDS ORDERED: *Potassium Replacement Protocol MC SCH (09:15)
--- NOTE | 2023-11-09 21:00 | NUR ---
UPON SHIFT ASSESSMENT, PATIENT WAS AWAKE IN BED AND A&O x4. PATIENT DENIES BLOODY OR TARRY STOOLS. PATIENT CURRENTLY DENIES ABDOMINAL PAIN. VS ARE WNL. NS RUNNING 100/HR IN 20 LT FA. K+ 3.3 AND REPLACEMENT INITIATED WITH EFFER-K. CALL LIGHT WITHIN REACH. CONTACT PRECAUTION IN PLACE FOR + C-DIFF ANTIGEN.
[2023-11-09] MEDS ORDERED: Potassium Bicarbonate/Citrate 20 MEQ Effervescent TAB PO SCH (21:45)
--- NOTE | 2023-11-09 22:06 | NUR ---
CALL PL[facility]ED TO [facility]. PATIENT'S HgB 8.2. INQUIRED IF LOVENOX SHOULD BE HELD. NO NEW ORDERS GIVEN.
[2023-11-10] VITALS (12 sets, daily range): BP systolic 126–155; BP diastolic 65–75; PULSE 63–75; TEMP 97.3–98.4
[2023-11-10 06:44] LABS: BASO % 0.7 % (0.0-2.0); EOS # 0.2 K/mm3 (0.0-0.7); EOS % 3.4 % (0.0-4.0); GRAN # 3.1 K/mm3 (1.4-6.5); GRAN % 54.6 % (42.2-75.2); LYMPH # 1.8 K/mm3 (1.2-3.4); LYMPH % 31.3 % (20.0-51.0); MEAN CELL VOLUME 85 fl (80.0-100.0); MEAN CORPUSCULAR HGB CONC 32 g/dl (33.0-37.0); MEAN PLATELET VOLUME 10.3 fl (7.4-10.4); MONO # 0.5 K/mm3 (0.1-0.6); MONO % 9.5 % (1.7-9.3); PLATELET COUNT 267 K/mm3 (130-400); RED BLOOD COUNT 3.27 M/mm3 (4.10-5.30); REDCELL DISTRIBUTION WIDTH-CV 12.8 % (11.5-14.5)
[2023-11-10 06:47] LABS: HEMATOCRIT 27.9 % (37.0-47.0); MEAN CORPUSCULAR HEMOGLOBIN 28 pg (27-31)
[2023-11-10 07:08] LABS: ALBUMIN 2.5 g/dL (3.4-4.8); BILIRUBIN,TOTAL 0.3 mg/dL (0.2-1.2); CALCIUM 8.6 mg/dL (8.4-10.2); CREATININE, serum 0.69 mg/dL (0.57-1.11); MAGNESIUM 1.8 mg/dL (1.6-2.6); POTASSIUM 3.5 mEq/L (3.5-4.5); TOTAL PROTEIN 5.3 g/dl (6.2-8.1)
--- NOTE | 2023-11-10 07:25 | NUR ---
bedside shift report received from DAQUAN Hadley, assisted patient up to bathroom at this time
[2023-11-10] MEDS ORDERED: Potassium Bicarbonate/Citrate 20 MEQ Effervescent TAB PO SCH (07:45)
--- NOTE | 2023-11-10 09:00 | NUR ---
resting in bed visiting with , full assessment completed, see interventions for further info, denies needs at this time
--- NOTE | 2023-11-10 11:40 | NUR ---
resting in bed and denies needs
--- NOTE | 2023-11-10 13:00 | NUR ---
resting in bed, has had lunch, denies needs
--- NOTE | 2023-11-10 15:20 | NUR ---
resting in bed visiting with hospital, denies needs
[2023-11-10] MEDS ORDERED: Vancomycin 125 MG CAP PO SCH ×2 (16:30→21:00)
--- NOTE | 2023-11-10 18:48 | NUR ---
bedside shift repoert given to LeonieRN
--- NOTE | 2023-11-10 20:30 | NUR ---
UPON SHIFT ASSESSMENT, PRESTON WAS IN BED AND A&O x 4. WAS VISITING BEDSIDE. SHE STATES SHE CONTINUES TO HAVE LOOSE STOOLS. SHE NOTES NO BLOOD AND DENIES ABDONINAL PAIN. VS ARE WNL AND PATIENT ATE AND TOLERATED 100% OF DINNER TRAY. CALL LIGHT WITHIN REACH.
[2023-11-11] VITALS (8 sets, daily range): BP systolic 123–155; BP diastolic 67–82; PULSE 65–76; TEMP 97–98.5
[2023-11-11] MEDS ORDERED: Potassium Bicarbonate/Citrate 20 MEQ Effervescent TAB PO SCH (08:00)
--- NOTE | 2023-11-11 09:58 | NUR ---
PATIENT SITTING UP IN BED UPON ENTERING ROOM. MORNING MEDICATIONS ADMINISTERED PER eMAR. PATIENT DENIES ANY PAIN. REPORTS HER STOOLS HAVE BEEN LESS FREQUENT AND ARE NOT LIQUID. THIS RN INSTRUCTED PATIENT TO SAVE HER STOOLS FOR THIS RN TO OBSERVE. PATIENT FEELS LIKE SHE COULD DICHARGE TODAY, THIS RN UPDATED HER ON PLAN OF CARE. WILL CONTINUE TO MONITOR.
[2023-11-11] MEDS ORDERED: VANCOCIN H250 MG/CAP PO (11:13)
--- NOTE | 2023-11-11 12:45 | NUR ---
DISCHARGE INSTRUCTIONS REVIEWED, AT BEDSIDE, ALL QUESTIONS ANSWERED. IV REMOVED. PATIENT ESCORTED OFF OF UNIT BY [facility]IA [facility] STAFF.
[2023-11-11] MEDS ORDERED: VANCOCIN H125 MG/CAP PO (13:55)
--- NOTE | 2023-11-11 16:08 | NUR ---
Chronograph Operator met with patient who is set to discharge home today. SW offered Home Health services to patient, who ultimately declined. SW presented and reviewed IM form with patient who verbalized understanding and provided signature. SW placed form in chart and provided copy to patient. Discharge Plan; Home
== END 2023-11-11 14:00 | disposition home or self-care (01) | DRG 872 ==
LOC: COL.ER 14:09 → MEDICAL 19:37
PROVIDERS: Emergency Medicine; Physician Assistant; ADMIT Internal Medicine
DX: A41.4 Sepsis due to anaerobes (principal); A04.72 Enterocolitis due to Clostridium difficile, not specified as recurrent; D62 Acute posthemorrhagic anemia; E03.9 Hypothyroidism, unspecified; E78.5 Hyperlipidemia, unspecified; F32.A Depression, unspecified; I25.10 Atherosclerotic heart disease of native coronary artery without angina pectoris; E87.6 Hypokalemia; Z88.6 Allergy status to analgesic agent; Z90.49 Acquired absence of other specified parts of digestive tract; Z90.710 Acquired absence of both cervix and uterus; Z79.02 Long term (current) use of antithrombotics/antiplatelets; Z79.890 Hormone replacement therapy; Z79.899 Other long term (current) drug therapy; Z86.73 Personal history of transient ischemic attack (TIA), and cerebral infarction without residual deficits
CPT/HCPCS: J1650; J2405; J2470; J2543; J3010; J7030; Q3014; Q9967